=== PATIENT | female | born 1965 | race Caucasian/White ===

== ENCOUNTER 2017-02-16 09:09 | Emergency (ER) | payer OTHER ==
[~2017-02-16] VITALS: Ht 160 cm; Wt 55.0 kg
[2017-02-16 09:48] VITALS: Ht 160 cm; Wt 55.0 kg
[2017-02-16 12:27] LABS: CALCIUM 8.9 mg/dl (8.4-10.2); CREATININE 0.5 mg/dl (0.44-1.00); POTASSIUM 3.7 mmol/L (3.5-5.1)
[2017-02-16 12:28] LABS: BASOPHIL # 0.1 10^3/ul (0.0-0.1); EOSINOPHILS # 0.1 10^3/ul (0.0-0.5); EOSINOPHILS % 1.3 % (0.0-7.0); LYMPHOCYTES # 0.9 10^3/ul (0.8-2.9); LYMPHOCYTES % 14.4 % (15.0-51.0); MEAN CORPUSCULAR HEMOGLOBIN 34.4 pg (29.0-33.0); MEAN CORPUSCULAR HGB CONC 34.3 g/dl (32.0-37.0); MEAN CORPUSCULAR VOLUME 100.3 fl (82.0-101.0); MEAN PLATELET VOLUME 9.2 fl (7.4-10.4); MONOCYTE # 0.5 10^3/ul (0.3-0.9); MONOCYTES % 8.6 % (0.0-11.0); NEUTROPHILS % 74.2 % (39.0-77.0); PLATELET COUNT 267 10^3/UL (140-415); RED BLOOD COUNT 3.49 10^6/ul (4.20-5.40); RED CELL DISTRIBUTION WIDTH 13.2 % (11.5-14.5); WHITE BLOOD COUNT 6.3 10^3/ul (4.8-10.8)
--- NOTE | 2017-02-16 12:39 | ERD ---
ER Documentation Chief Complaint Date/Time DATE: 02/16/17 TIME: 12:37 Chief Complaint constipation for past 4 days, last drink at "0300" HPI 51-year-old female with chronic alcoholism presenting with constipation for the past 4 days. She denies any associated nausea, vomiting, fever, chills. She feels like her abdomen is distended. She complains of 5 out of 10 pain described as pressure, generalized but mainly in the middle of her abdomen. No associated dysuria or hematuria. No chest pain or shortness of breath. She has been trying prune juice which has not been helping. She does continue to drink daily. ROS All systems reviewed and are negative except as per history of present illness. Medications Home Meds Active Scripts Magnesium Citrate* (Magnesium Citrate*) 296 Ml Solution, 296 ML PO ONCE, #1 BOTTLE Prov:ROOPA WOLFE MD 02/16/17 Allergies Allergies: Coded Allergies: No Known Allergies (Verified Allergy, Mild, 04/10/16) PMhx/Soc Medical and Surgical Hx: pt denies Medical Hx, pt denies Surgical Hx History of Surgery: No Anesthesia Reaction: No Hx Neurological Disorder: No Hx Respiratory Disorders: No Hx Cardiac Disorders: No Hx Psychiatric Problems: No Hx Miscellaneous Medical Probl: No Hx Alcohol Use: Yes (Alcohol abuse.) Hx Substance Use: No Hx Tobacco Use: Yes Smoking Status: Current every day smoker FmHx Family History: No diabetes Physical Exam Vitals Vital Signs Date Time Temp Pulse Resp B/P Pulse Ox O2 Delivery O2 Flow Rate FiO2 02/16/17 09:48 98.4 106 18 142/92 97 Physical Exam Const: Well-appearing, no apparent distress, somewhat unkempt Head: Atraumatic Eyes: Normal Conjunctiva ENT: Normal External Ears, Nose and Mouth. Neck: Full range of motion..~ No meningismus. Resp: Clear to auscultation bilaterally Cardio: Regular rate and rhythm, no murmurs Abd: Soft, non tender, non distended. No Barreto sign. Negative McBurney's point tenderness. Normal bowel sounds Skin: No petechiae or rashes Back: No midline or flank tenderness Ext: No cyanosis, or edema Neur: Awake and alert and oriented 3, normal speech, normal gait, strength and sensations intact in all 4 extremities Psych: Normal Mood and Affect Result Diagram: 02/16/17 1038 02/16/17 1038 Results 24 hrs Laboratory Tests Test 02/16/17 10:38 02/16/17 12:45 02/16/17 12:56 White Blood Count 6.310^3/ul Red Blood Count 3.4910^6/ul Hemoglobin 12.0g/dl Hematocrit 35.0% Mean Corpuscular Volume 100.3fl Mean Corpuscular Hemoglobin 34.4pg Mean Corpuscular Hemoglobin Concent 34.3g/dl Red Cell Distribution Width 13.2% Platelet Count 86224^3/UL Mean Platelet Volume 9.2fl Neutrophils % 74.2% Lymphocytes % 14.4% Monocytes % 8.6% Eosinophils % 1.3% Basophils % 1.0% Nucleated Red Blood Cells % 0.0/100WBC Neutrophils # (Manual) 510^3/ul Lymphocytes # 0.910^3/ul Monocytes # 0.510^3/ul Eosinophils # 0.110^3/ul Basophils # 0.110^3/ul Nucleated Red Blood Cells # 0.010^3/ul Sodium Level 141mmol/L Potassium Level 3.7mmol/L Chloride Level 101mmol/L Carbon Dioxide Level 27mmol/L Anion Gap 17 Blood Urea Nitrogen 5mg/dl Creatinine 0.50mg/dl Glucose Level 114mg/dl Calcium Level 8.9mg/dl Urine Color YELLOW Urine Clarity CLOUDY Urine pH 5.0 Urine Specific Velpen 1.025 Urine Ketones NEGATIVEmg/dL Urine Nitrite NEGATIVEmg/dL Urine Bilirubin NEGATIVEmg/dL Urine Urobilinogen NEGATIVEmg/dL Urine Leukocyte Esterase 1+Yan/ul Urine Microscopic RBC 2/HPF Urine Microscopic WBC 16/HPF Urine Squamous Epithelial Cells MANY/HPF Urine Mucus FEW/HPF Urine Hemoglobin 1+mg/dL Urine Glucose NEGATIVEmg/dL Urine Total Protein 1+mg/dl Bedside Urine pH (LAB) 5.5 Bedside Urine Protein (LAB) 1+ Bedside Urine Glucose (UA) Negative Bedside Urine Ketones (LAB) Trace Bedside Urine Blood 1+ Bedside Urine Nitrite (LAB) Negative Bedside Urine Leukocyte Esterase (L Negative Procedures/MDM EMERGENT LABS AND DIAGNOSTIC STUDIES: Lab Results above were reviewed and interpreted by me. CBC: no anemia or evidence of infection CMP: No evidence of electrolyte abnormality, renal failure, hypoglycemia, liver failure, or biliary obstruction Lipase: no evidence of pancreatitis Troponin within normal limits Lactate within normal limits UA: no evidence of infection Radiology Results as interpreted by Radiology below were reviewed by John Wolfe MD: ALAN: Nonobstructive bowel gas pattern Initial Nursing notes reviewed. Previous Medical Records requested via the Electronic Health Record. EMERGENCY DEPARTMENT COURSE / MEDICAL DECISION MAKING: Patient is presenting with abdominal pain and constipation. She is afebrile with normal vitals and an unremarkable exam. I have a low suspicion for acute surgical abdomen, specifically bowel obstruction. Her labs did not show any electrolyte abnormalities. X-ray did not show evidence of obstruction. I do not think she needs a CT abdomen at this time. My plan was to prescribe the patient mag citrate for her constipation. However the patient eloped prior to discussing the discharge plan with her. Departure Diagnosis: Primary Impression: Constipation Constipation type: unspecified constipation type Qualified Code: K59.00 - Constipation, unspecified constipation type Condition: Stable ROOPA WOLFE MD Feb 16, 2017 12:39
[2017-02-16 12:51] LABS: URINE BLOOD (Dip) POC 1+ (NEGATIVE)
[2017-02-16 13:11] LABS: ADD UMIC YES; UR ASCORBIC ACID NEGATIVE (NEGATIVE); UR BILIRUBIN (Dip) NEGATIVE (NEGATIVE); UR BLOOD (Dip) 1+ mg/dL (NEGATIVE); UR CLARITY CLOUDY (CLEAR); UR COLOR YELLOW (YELLOW); UR GLUCOSE (Dip) NEGATIVE (NEGATIVE); UR KETONES (Dip) NEGATIVE (NEGATIVE); UR LEUKOCYTE ESTERASE (Dip) 1+ Leu/ul (NEGATIVE); UR MUCUS FEW /HPF (NONE SEEN); UR NITRITE (Dip) NEGATIVE (NEGATIVE); UR RBC 2 /HPF (0-5); UR SPECIFIC GRAVITY (Dip) 1.025 (1.003-1.030); UR SQUAMOUS EPITHELIAL CELL MANY /HPF (FEW); UR TOTAL PROTEIN (Dip) 1+ mg/dl (NEGATIVE); UR UROBILINOGEN (Dip) NEGATIVE (NEGATIVE)
[2017-02-16] MEDS ORDERED: MAGN296S40 PO (14:01)
--- NOTE | 2017-02-16 14:07 | RADRPT ---
PROCEDURE: XR Abdomen. CLINICAL INDICATION: Abdominal pain TECHNIQUE: Supine and upright views of the abdomen were obtained. COMPARISON: None. FINDINGS: The bowel gas pattern is normal. There is no evidence of obstruction. No free intraperitoneal air i s seen. There are no abnormal calcifications overlying the urinary tracts. The osseous structures a re unremarkable. Cholecystectomy clips are seen. A surgical clip in the right lower quadrant is als o seen. IMPRESSION: Nonobstructive bowel gas pattern. RPTAT: HPNM Physician Hal Date Time Electronically viewed and signed by Physician Hal on 02/16/2017 14:06 /
== END 2017-02-16 14:30 | disposition left against medical advice (07) ==
LOC: E/R 09:09
DX: K59.00 Constipation, unspecified (principal); F17.210 Nicotine dependence, cigarettes, uncomplicated
CPT/HCPCS: 74010; 80048; 81001; 85025; Z7502; 81003